=== PATIENT | male | born 1980 | race Caucasian/White ===

== ENCOUNTER 2016-11-12 11:33 | Emergency (ER) | payer MEDICAID ==
[~2016-11-12] VITALS: Ht 167.6 cm; Wt 92.0 kg
[~2016-11-12 11:33] MED LIST: BACTDS PO; CEPH-443 PO; CYCL-319 PO; MELO-110 PO; NAPR-260 PO
[2016-11-12 11:41] VITALS: Ht 167.6 cm; Wt 92.0 kg
[2016-11-12] MEDS ORDERED: CYCL-319 PO (12:14)
--- NOTE | 2016-11-12 12:18 | ERA ---
ER Documentation Chief Complaint Date/Time DATE: 11/12/16 TIME: 12:15 Chief Complaint Complains of back pain x 3 days ago HPI 36-year-old male with a chief complaints of back pain radiating down to legs bilaterally. Has a chronic history of sciatica. Pain has been getting worse for the past 4-7 days. Has been treated with meloxicam and cyclobenzaprine with relief in the past. Has requested these medications today. Patient denies mechanism of injury, history of cancer, recent illness, unexplained weight loss, saddle anesthesia, generalized neurological deficit, incontinence, urinary retention, thoracic pain, or pain at rest. Patient has no other complaints and describes no other associated manifestations. Nursing notes have been reviewed and are consistent with history given. ROS All systems reviewed and are negative except as per history of present illness. Medications Home Meds Active Scripts Cyclobenzaprine Hcl* (Cyclobenzaprine Hcl*) 10 Mg Tablet, 10 MG PO TID, #15 TAB Prov:RAMSEY GREEN PA-C 11/12/16 Cephalexin* (Keflex*) 500 Mg Capsule, 500 MG PO QID for 7 Days, CAP Prov:SIERRA RIOS PA-C 11/30/15 Sulfamethoxazole-Trimethoprim* (Bactrim* DS) 800-160 Mg Tab, 1 TAB PO BID for 7 Days, TAB Prov:SIERRA RIOS PA-C 11/30/15 Naproxen* (Naprosyn*) 500 Mg Tablet, 500 MG PO BID Y for PAIN AND/OR INFLAMMATION, #30 TAB Prov:SIERRA RIOS PA-C 11/30/15 Cyclobenzaprine Hcl* (Cyclobenzaprine Hcl*) 10 Mg Tablet, 10 MG PO Q8 Y for muscle spasm, #15 TAB Prov:MOISES JOHNSON DO 06/07/15 Meloxicam* (Mobic*) 15 Mg Tablet, 15 MG PO DAILY, #10 TAB Prov:MOISES JOHNSON DO 06/07/15 Allergies Allergies: Coded Allergies: No Known Allergy (Unverified , 06/07/15) PMhx/Soc History of Surgery: No Anesthesia Reaction: No Hx Neurological Disorder: No Hx Respiratory Disorders: No Hx Cardiac Disorders: No Hx Psychiatric Problems: No Hx Alcohol Use: No Hx Substance Use: No Hx Tobacco Use: No Smoking Status: Never smoker Physical Exam Vitals Vital Signs Date Time Temp Pulse Resp B/P Pulse Ox O2 Delivery O2 Flow Rate FiO2 11/12/16 11:41 98.6 100 20 150/83 98 Physical Exam Const: Well-appearing. Mild distress. Back: No midline, flank, or CVA tenderness. Negative straight leg raise. Range of motion decreased secondary to pain. Neur: No saddle anesthesia. Neurovascularly intact bilaterally. Head: Normocephalic, Atraumatic. Eyes: Non-injected; No discharge. EOMI and SVITLANA bilaterally. Ears: Normal External Ears, EACs clear, TM normal bilaterally without erythema. Nose: Normal external nose; no discharge, or sinus tenderness. Oral: No oral edema visualized. Mucous membranes moist and pink. Neck: No tenderness. No cervical lymphadenopathy, or masses palpated. Supple ~ No meningismus. Pulm: Good air movement in upper and lower respiratory tracts. Clear to auscultation bilaterally. No dyspnea or stridor. Cardio: Regular rate and rhythm; No murmurs, gallops or rubs auscultated. Radia pulses 2+ bilaterally. No cyanosis noted. Capillary refill less than 2 seconds. Abd: Normal bowel sounds. Soft, non tender, non distended. MS: Normal motor strength, normal tone with gross examination. Skin: No petechiae or rashes. Good turgor. Ext: No edema. Normal movement of all extremities grossly observed. Psych: Normal Mood and Affect. Procedures/MDM Patient was evaluated and worked up for back pain as described in history and physical examination. Patient is driving, thus narcotics were not used in the ED. has stated that ibuprofen and Tylenol did not work and has refused. Most likely diagnosis is sciatica radiating to bilateral legs. Thus, the treatment plan will include [place] 5/325 mg p.o. every 6 hours 6 tabs and cyclobenzaprine 3 times daily 3 days. For discomfort as well as conservative therapy which has been discussed with the patient. At this time I do not suspect cauda equina syndrome, spinal cord compression, aortic involvement, epidural abscess, obstructive nephrolithiasis, pyelonephritis, or other neurovascular compromise. I have spoke with the patient regarding their condition and future management. They have verbally responded that they understand their status and treatment plan. The patients vitals are stable, and their current condition is appropriate for discharge. The patient will be given discharge instructions with return precautions. Departure Diagnosis: Primary Impression: Back pain Qualified Code: M54.42 - Chronic bilateral low back pain with bilateral sciatica Condition: Stable Patient Instructions: Back Pain W/ Sciatica Additional Instructions: Follow up with your PCP within the next 1-3 days for a more thorough evaluation and a possible referral to a specialist. Return the the emergency department immediately if symptoms worsen or change. If you have any questions regarding medications, ask your pharmacist or us before you leave. If any adverse reactions occur while taking your medications, discontinue the treatment and return to the emergency department immediately. Take your medications as directed, and complete the entire course of treatment. RAMSEY GREEN PA-C Nov 12, 2016 12:18
== END 2016-11-12 12:31 | disposition home or self-care (01) ==
LOC: FTE 11:33
DX: M54.42 Lumbago with sciatica, left side (principal); M54.41 Lumbago with sciatica, right side
CPT/HCPCS: 99283